=== PATIENT | female | born 1995 | race Caucasian/White ===

== ENCOUNTER 2018-01-27 18:29 | Emergency (ER) | payer BC, MEDICAID ==
[~2018-01-27] VITALS: Ht 157.5 cm; Wt 54.4 kg
[2018-01-27 18:39] VITALS: BP_SYST 135
--- NOTE | 2018-01-27 18:43 | NUR ---
Patient triaged and placed in waiting room. VSS and patient appears in no acute distress at this time. Accompanied by FRIEND, awaiting available bed, and MD notified of need for MSE.
--- NOTE | 2018-01-27 20:22 | NUR ---
DMV Report filed and faxed to [phone].
== END 2018-01-27 21:26 | disposition left against medical advice (07) ==
LOC: SED 18:29
DX: R53.1 Weakness (principal); Z53.21 Procedure and treatment not carried out due to patient leaving prior to being seen by health care provider